=== PATIENT | female | born 1940 ===

== ENCOUNTER → 2018-04-23 | Outpatient (CLI) | payer MEDICARE ==
[~2018-04-23] MED LIST: ALBU90OI6 INH; Prednisone20 MG PO
== END | disposition home or self-care (01) ==
LOC: LAB EV 09:18 → LAB SHORT 09:18
DX: R30.0 Dysuria (principal)
CPT/HCPCS: 87086; 87147

== ENCOUNTER 2018-12-20 10:15 | Day surgery (SDC) | payer MEDICARE ==
[~2018-12-20] VITALS: Ht 149.9 cm; Wt 71.4 kg
[2018-12-20] MEDS ORDERED: Calcium 250+D1 EACH PO (11:15)
[2018-12-20] MEDS ORDERED: THERA1 EACH PO (11:15)
== END 2018-12-20 15:40 | disposition home or self-care (01) ==
LOC: MHTC 10:15
DX: I49.5 Sick sinus syndrome (principal); I10 Essential (primary) hypertension; J45.909 Unspecified asthma, uncomplicated; M19.90 Unspecified osteoarthritis, unspecified site; M81.0 Age-related osteoporosis without current pathological fracture; Z95.0 Presence of cardiac pacemaker; Z87.891 Personal history of nicotine dependence; Z88.0 Allergy status to penicillin
CPT/HCPCS: 33228; 99152; 99153; C1785; J0690; J1644; J2250; J3010; J7040

== ENCOUNTER → 2020-06-05 | Outpatient (CLI) | payer MEDICARE ==
[~2020-06-05] MED LIST changes: +Calcium 250+D1 EACH PO; +THERA1 EACH PO
[2020-06-05 13:54] LABS: BASOPHILS ABSOLUTE AUTO 0.05 K/mm3 (0.00-0.23); BASOPHILS PERCENT AUTO 1 % (0-2); EOSINOPHILS ABSOLUTE AUTO 0.15 K/mm3 (0.00-0.68); EOSINOPHILS PERCENT AUTO 3 % (0-6); Hematocrit 40.4 % (33.0-51.0); Hemoglobin 13.8 g/dL (11.5-16.0); IMMATURE GRAN PERCENT AUTO 0 % (0-1); LYMPHOCYTES ABSOLUTE AUTO 2.25 K/mm3 (0.84-5.20); LYMPHOCYTES PERCENT AUTO 45 % (21-46); MONOCYTES ABSOLUTE AUTO 0.36 K/mm3 (0.16-1.47); MONOCYTES PERCENT AUTO 7 % (4-13); Mean Corpuscular HGB 30.3 pg (26.0-34.0); Mean Corpuscular HGB Conc 34.2 g/dL (31.5-36.5); Mean Corpuscular Volume 89 fL (80-100); Mean Platelet Volume 10.9 fL (9.1-12.4); NEUTROPHILS ABSOLUTE AUTO 2.24 K/mm3 (1.96-9.15); NEUTROPHILS PERCENT AUTO 44 % (41-73); Platelet Count 219 K/mm3 (150-400); RDW Coefficient Variation 13.2 % (11.7-14.2); RDW Standard Deviation 42.7 fL (35.1-46.3); Red Blood Cell Count 4.55 M/mm3 (3.80-5.20); White Blood Cell Count 5.05 K/mm3 (4.00-11.30)
[2020-06-05 14:18] LABS: Free Thyroxine 1.15 ng/dL (0.70-1.60); Thyroid Stimulating Hormone 0.535 uIU/mL (0.360-4.800)
== END ==
LOC: LAB SHORT 13:47 → LAB EV 13:47
PROVIDERS: Nurse Practitioner Family
DX: E04.2 Nontoxic multinodular goiter (principal); M54.2 Cervicalgia; R53.83 Other fatigue
CPT/HCPCS: 36415; 84439; 84443; 85025